=== PATIENT | male | born 1950 | race Caucasian/White ===

== ENCOUNTER 2020-06-19 09:59 | Day surgery (SDC) | payer MEDICARE, OTHER, SELFPAY ==
[2020-06-12 15:25] VITALS: BMI 31.6
--- NOTE | 2020-06-14 11:44 | MHC.SHP ---
Pre-Procedural Eval Section A The patient is an INPATIENT: No The History & Physical has been completed within 30 days and I have reviewed it.: Yes Section B Chief Complaint: Cataract Right Eye Allergies: Allergies Allergy/AdvReac Type Severity Reaction Status Date / Time No Known Allergies Allergy Verified 06/12/20 15:25 Plan Diagnosis/Plan: Unchanged I have reviewed the history and physical and performed a pertinent physical examination on my patient. No changes have occurred unless specified.
--- NOTE | 2020-06-16 09:59 | P.CONAN_ITS ---
Documented by User: Ladonna Ordaz 06/16/20 09:59 HPI - Anesthesia Eval Consult details Narrative: 69yo M for Right Cataract Extraction IOL Insertion No prev cataract on record PCP cleared [facility] Past Medical History Medical History (Updated 06/19/20 @ 12:54 by Renu Blackman) Atrial fibrillation Elevated cholesterol GERD (gastroesophageal reflux disease) History of prostate cancer CLEMENTINE on CPAP Peripheral vascular insufficiency Thoracic aortic aneurysm Surgical History Surgical History History of AAA (abdominal aortic aneurysm) repair History of left cataract extraction Hx of prostatectomy Hx of umbilical hernia repair Social History Social History Are you a primary healthcare corporate account director to a significant other at home: No Do you presently have visiting nurse or other home services: No Smoking Status: Former smoker Smoking Quit Date: 11/1984 Second Hand Smoke Exposure: No Use of substances other than those prescribed or required for medical reasons: No Have you been hit, kicked, punched, or otherwise hurt by someone within the past year? If so, by whom?: No Are you DNR?: No Advance Directives: No Advance Directives Information Provided: No Advance Directives on File: No Recently lost weight without trying: No Eating poorly because of decreased appetite: No Nutrition Risks: No Nutritional Risk Meds Allergies Allergy/AdvReac Type Severity Reaction Status Date / Time No Known Allergies Allergy Verified 06/12/20 15:25 Home Medications Medication Instructions Recorded Confirmed Last Taken Type aspirin [Aspir-81] 81 mg PO DAILY 06/12/20 06/12/20 Unknown History atorvastatin 1 tab PO DAILY 06/12/20 06/12/20 Unknown History calcium citrate-vitamin D3 1 tab PO DAILY 06/12/20 06/12/20 Unknown History cyanocobalamin (vitamin B-12) 1,000 mcg PO DAILY 06/12/20 06/12/20 Unknown History [Vitamin B-12] Exam Exam Date and Time: June 16, 2020 0959 Height,Weight and Vital Signs: Height 6 ft 4 in Weight 117.934 kg Assessment and Plan Assessment Anesthesia Assessment: Chart Reviewed Documented by User: Renu Blackman 06/19/20 12:56 [facility] Past Medical History Medical History (Updated 06/19/20 @ 12:54 by Renu Blackman) Atrial fibrillation Elevated cholesterol GERD (gastroesophageal reflux disease) History of prostate cancer CLEMENTINE on CPAP Peripheral vascular insufficiency Thoracic aortic aneurysm Family History Family history of problems with anesthesia: No Surgical History Surgical History History of AAA (abdominal aortic aneurysm) repair History of left cataract extraction Hx of prostatectomy Hx of umbilical hernia repair History of Problems with Anesthesia: No Social History Social History Are you a primary healthcare corporate account director to a significant other at home: No Do you presently have visiting nurse or other home services: No Smoking Status: Former smoker Smoking Quit Date: 11/1984 Second Hand Smoke Exposure: No Use of substances other than those prescribed or required for medical reasons: No Have you been hit, kicked, punched, or otherwise hurt by someone within the past year? If so, by whom?: No Are you DNR?: No Advance Directives: No Advance Directives Information Provided: No Advance Directives on File: No Recently lost weight without trying: No Eating poorly because of decreased appetite: No Nutrition Risks: No Nutritional Risk Meds Allergies Allergy/AdvReac Type Severity Reaction Status Date / Time No Known Allergies Allergy Verified 06/12/20 15:25 Home Medications Medication Instructions Recorded Confirmed Last Taken Type aspirin [Aspir-81] 81 mg PO DAILY 06/12/20 06/12/20 Unknown History atorvastatin 1 tab PO DAILY 06/12/20 06/12/20 Unknown History calcium citrate-vitamin D3 1 tab PO DAILY 06/12/20 06/12/20 Unknown History cyanocobalamin (vitamin B-12) 1,000 mcg PO DAILY 06/12/20 06/12/20 Unknown History [Vitamin B-12] Exam Height,Weight and Vital Signs: Vital Signs Temp Pulse Resp BP Pulse Ox 06/19/20 12:07 97.5 F 50 20 138/65 94 Airway Mallampati Class: III TM Dist: >3cm Neck ROM: Full Heart: Irregular Lungs: CTAB Assessment and Plan Assessment Anesthesia Assessment: Anesthesia Plan Discussed and Chart Reviewed Final Anesthetic Review NPO: Yes ASA Class: III Final Preanesthetic Review: No Changes in Pt Med Stat, Meds/Allgs Chart Reviewed, Consent Obtained/Reviewed and Anes Risks/Benef Reviewed Patient Risk: Intermediate Procedure Risk: Low Assessment/Block/Sedation in SS: Assess/Block/Sedation-SS Anesthetic Plan Anesthetic Plan: MAC: Disposition: Standard PACU
[2020-06-19 12:07] VITALS: BP 138/65; PULSE 50; RESP 20; TEMP 36.4; O2SAT 94
[2020-06-19] MEDS: Lactated Ringers 500 ML 50 ML IV (12:18)
[2020-06-19] MEDS: Tetracaine HCl/PF 0.5% Oph Sol 4 ML DROPS 1 DROP EYE-RIGHT (12:19)
[2020-06-19] MEDS: Phenylephrine HCL 2.5% Oph SoL 2 ML BOTTLE 1 DROP EYE-RIGHT ×3 (12:20→12:27)
[2020-06-19] MEDS: Tropicamide 1 % Ophth Sol 3 ML BTL 1 DROP EYE-RIGHT ×3 (12:22→12:30)
[2020-06-19 12:51] VITALS: BP 166/83; PULSE 56; RESP 18; TEMP 36.4; O2SAT 98
--- NOTE | 2020-06-19 13:09 | HO.PNOPHT ---
Ophthalmology Procedure Procedure Date of Service: 06/19/20 Ophthalmology Viscoelastic: Crystal Patelt Dual Pack Pro Ophthalmology Lenses: TECNIS IQ2797 (19.5) Procedure Notes: PREOPERATIVE DIAGNOSIS: Decreased visual acuity right eye secondary to cataract POSTOPERATIVE DIAGNOSIS: Same PROCEDURE: Right cataract extraction with intraocular lens insertion SURGEON: Avelino Bucio M.D. ANESTHESIA: Topical/MAC ESTIMATED BLOOD LOSS: None COMPLICATIONS: Poor Dilation After obtaining informed consent, the patient was brought to the operating room suite and placed in the supine position. After adequate sedation per anesthesia, topical drops of Tetracaine were given to the right eye. The eye was then prepped and draped in the usual sterile fashion. The operating room microscope was then positioned over the operative eye and a lid speculum placed. A paracentesis was created. Viscoelastic was then instilled into the anterior chamber. A three plane incision was then created temporally, utilizing a 2.85 mm keratome. Capsulotomy forceps were then utilized to create a circular tear capsulotomy. Poor dilation required i nstillation of 0.5 cc of 1 MPF lidocaine followed placement of a Mayyugin Ring. Hydrodissection and hydrodelineation were carried out until adequate mobilization of the nucleus occurred. Phacoemulsification was then utilized to remove the dense central nucleus followed by removal of the cortical material utilizing the automated aspiration irrigation unit. Viscoelastic was instilled into the posterior capsular bag followed by placement of a posterior chamber intraocular lens without difficulty. The Malyugin Ring was remove.The residual Viscoelastic was then removed utilizing the automated IA machine. The wound was checked and found to be watertight. The patient tolerated the procedure well and the lid speculum was removed. Intracameral injection of Vigamox 0.1 mL followed by a subtenon injection of Kenalog-40 0.2 mL were administered. The patient will be seen in the a.m.
[2020-06-19 13:14] VITALS: BP 141/88; PULSE 41; RESP 14; TEMP 36.6; O2SAT 98
--- NOTE | 2020-06-19 14:15 | HO.ANESPROP2 ---
HPI - Anesthesia Eval Consult details Narrative: 69 yo male patient for Right cataract extraction, IOL insertion [facility] Past Medical History Medical History (Updated 06/19/20 @ 12:54 by Renu Blackman) Atrial fibrillation Elevated cholesterol GERD (gastroesophageal reflux disease) History of prostate cancer CLEMENTINE on CPAP Peripheral vascular insufficiency Thoracic aortic aneurysm Family History Family history of problems with anesthesia: No Surgical History Surgical History History of AAA (abdominal aortic aneurysm) repair History of left cataract extraction Hx of prostatectomy Hx of umbilical hernia repair History of Problems with Anesthesia: No Social History Social History Are you a primary hospice spiritual care coordinator to a significant other at home: No Do you presently have visiting nurse or other home services: No Smoking Status: Former smoker Smoking Quit Date: 11/1984 Second Hand Smoke Exposure: No Use of substances other than those prescribed or required for medical reasons: No Have you been hit, kicked, punched, or otherwise hurt by someone within the past year? If so, by whom?: No Are you DNR?: No Advance Directives: No Advance Directives Information Provided: No Advance Directives on File: No Recently lost weight without trying: No Eating poorly because of decreased appetite: No Nutrition Risks: No Nutritional Risk Meds Allergies Allergy/AdvReac Type Severity Reaction Status Date / Time No Known Allergies Allergy Verified 06/12/20 15:25 Home Medications Medication Instructions Recorded Confirmed Last Taken Type aspirin [Aspir-81] 81 mg PO DAILY 06/12/20 06/12/20 Unknown History atorvastatin 1 tab PO DAILY 06/12/20 06/12/20 Unknown History calcium citrate-vitamin D3 1 tab PO DAILY 06/12/20 06/12/20 Unknown History cyanocobalamin (vitamin B-12) 1,000 mcg PO DAILY 06/12/20 06/12/20 Unknown History [Vitamin B-12] Exam Exam Date and Time: June 19, 2020 1415 Height,Weight and Vital Signs: Height 6 ft 4 in Weight 117.934 kg Last Vital Signs Temp 97.8 F 06/19/20 13:14 Pulse 41 L 06/19/20 13:14 Resp 14 06/19/20 13:14 BP 141/88 H 06/19/20 13:14 Pulse Ox 98 06/19/20 13:14 Airway Mallampati Class: II TM Dist: >3cm Neck ROM: Full Heart: Irregular Lungs: CTAB Assessment and Plan Assessment Anesthesia Assessment: Anesthesia Plan Discussed and Chart Reviewed Final Anesthetic Review NPO: Yes ASA Class: III Final Preanesthetic Review: No Changes in Pt Med Stat, Meds/Allgs Chart Reviewed, Consent Obtained/Reviewed and Anes Risks/Benef Reviewed Patient Risk: Intermediate Procedure Risk: Low Assessment/Block/Sedation in SS: Assess/Block/Sedation-SS Anesthetic Plan Anesthetic Plan: MAC: Disposition: Standard PACU
== END 2020-06-19 13:35 | disposition home or self-care (01) ==
PROVIDERS: PCP Family Medicine; Visit Provider Ophthalmology
PROC: (CPT 66985; principal; 2020-06-19 12:30)
DX: H25.11 Age-related nuclear cataract, right eye (principal); H21.561 Pupillary abnormality, right eye; H54.7 Unspecified visual loss; I48.91 Unspecified atrial fibrillation; G47.33 Obstructive sleep apnea (adult) (pediatric); C90.01 Multiple myeloma in remission; Z96.1 Presence of intraocular lens; Z85.46 Personal history of malignant neoplasm of prostate; Z79.82 Long term (current) use of aspirin; Z79.899 Other long term (current) drug therapy
CPT/HCPCS: 66982; J2250; J3010; J3300; V2632

== ENCOUNTER 2023-03-17 11:48 | Outpatient (REF) | payer MEDICARE, OTHER, SELFPAY ==
[2023-03-17 16:05] VITALS: BMI 34.1
[2023-03-17 16:06] VITALS: BP 130/79; PULSE 66; RESP 17; TEMP 36.5; O2SAT 93
== END 2023-03-17 11:49 | disposition home or self-care (01) ==
LOC: HO.MS 11:48
PROVIDERS: PCP Family Medicine; Visit Provider Ophthalmology
PROC: (CPT 66821; principal; 2023-03-17 13:30)
DX: H26.491 Other secondary cataract, right eye (principal)
CPT/HCPCS: 66821